=== PATIENT | female | born 2000 | race Caucasian/White ===

== ENCOUNTER 2023-01-17 11:09 | Outpatient (CLI) | payer OTHER, SELFPAY ==
[2023-01-17 13:29] LABS: Kit Draw Collected
== END 2023-01-17 11:10 | disposition home or self-care (01) ==
LOC: ANHGOSHLAB 11:11
PROVIDERS: PCP Family Medicine; Visit Provider Nurse Practitioner Family
DX: Z13.21 Encounter for screening for nutritional disorder (principal); E53.8 Deficiency of other specified B group vitamins
CPT/HCPCS: 36415